=== PATIENT | female | born 1980 | race Caucasian/White ===

== ENCOUNTER → 2018-03-17 21:20 | Outpatient (CLI) | payer OTHER, SELFPAY | PROVIDERS: Visit Provider Nurse Practitioner | DX: R39.9 Unspecified symptoms and signs involving the genitourinary system (principal) | CPT/HCPCS: 87086 ==

== ENCOUNTER 2018-03-24 11:50 | Emergency (ER) | payer OTHER, SELFPAY ==
[2018-03-24 11:51] VITALS: BP 147/94; PULSE 125; RESP 16; TEMP 37.2; O2SAT 100; BMI 19.1
[2018-03-24 13:47] LABS: Bacteria 0 SEEN /hpf (None Seen); Mucous, Urine 0 SEEN /hpf (<or=2+); Red Blood Cells-Urine 0 SEEN /hpf (0-5); White Blood Cells 0 SEEN /hpf (0-5)
[2018-03-24 13:57] LABS: Color, Urine Yellow (Yellow); Glucose, Dipstick Normal (Normal); Ketone-Dipstick 50 mg/dl (Negative); Leukocyte Esterase-Dipstick Negative /ul (Negative); Nitrite-Dipstick Negative (Negative); Occult Blood-Urine Negative /ul (Negative); Protein-Dipstick Negative (Negative); Urine Bilirubin Dipstick Negative (Negative); Urine Clarity Clear (Clear); Urine Urobilinogen Normal (Normal)
[2018-03-24 13:59] LABS: Internal QC Validated? YES +Cl - CLEAR BKGD; Pregnancy, Urine Negative Negative
[2018-03-24 14:07] LABS: Squamous Epithelial Cells - UA 0-5 SEEN /hpf (5-10)
[2018-03-24] MEDS: 0.9% Normal Saline 1,000 ML 150 ML IV (14:45)
[2018-03-24] MEDS: Ketorolac 30 MG/ML Syringe IV (14:46)
[2018-03-24] MEDS: Ondansetron 4 MG/2 ML Vial IV (14:46)
[2018-03-24 14:48] LABS: Absolute Lymphocyte Count 1.68 X10^3/ul (0.83-4.51); Absolute Neutrophil Count 5.4 X10^3/uL (2.0-7.7); Basophil# 0.01 X10^3/uL; Basophil% 0.1 % (0-1); Eosinophil# 0.01 X10^3/uL; Eosinophils% 0.1 % (0-5); Hematocrit 38.7 % (37-47); Hemoglobin 12.8 g/dl (12.0-15.0); Lymphocyte # 1.68 X10^3/ul (4.0); Lymphocyte % 21.8 % (19-41); Mean Corp Hgb Conc 33.1 g/gl (32-36); Mean Corpuscular Hgb 29.6 pg (27.0-32.0); Mean Corpuscular Volume 89.4 fL (81-99); Mean Platelet Vol. 10.2 fl (6.2-12.0); Monocyte# 0.64 X10^3/uL; Monocyte% 8.3 % (0-10); Neutrophil # 5.37 X10^3/uL (2.7-7.7); Neutrophil % 69.6 % (47-70); POSITIVE COUNT NO; POSITIVE DIFFERENTIAL NO; POSITIVE MORPHOLOGY NO; Platelet Count 193 K/mm3 (150-450); RBC Distribution Width CV 12.7 % (11.6-14.6); RBC Distribution Width SD 41.3 fl (35.1-43.9); Red Blood Count 4.33 M/mm3 (4.2-5.4); White Blood Count 7.7 K/mm3 (4.4-11.0)
[2018-03-24 15:00] LABS: AST(SGOT) 15 U/L (15-37); Alanine Aminotransfer ALT/SGPT 19 U/L (13-56); Albumin, Serum 4.3 g/dL (3.2-5.0); Alkaline Phosphatase 43 U/L (45-117); Anion Gap 7 (5-15); BUN 7 mg/dL (7-18); BUN/Creat Ratio 9.3 RATIO (10-20); Bilirubin, Direct 0.21 mg/dL (0.00-0.30); Calcium,Total 8.9 mg/dL (8.5-10.1); Chloride 109 mmol/L (98-107); Creatinine, Serum 0.75 mg/dL (0.55-1.02); EST Glomerular Filtration Rate 92 mL/min (>60); Est Glom Filt Rate - Afr Amer 112 mL/min (>60); Globulin 3.2 g/dL (2.2-4.2); Glucose 97 mg/dL (74-106); Lipase 90 U/L (73-393); Potassium 3.8 mmol/L (3.5-5.1); Protein, Total 7.5 g/dL (6.4-8.2); Sodium Level 140 mmol/L (136-145)
--- NOTE | 2018-03-24 15:14 | ED.VISSUMM ---
- ER Visit Summary Date of Service: 03/24/18 Chief Complaint: Right-sided abdominal pain History of Present Illness: The patient is a 37 F with a 2 week history of right-sided abdominal pain. It is been waxing and waning throughout the last 2 weeks. She denies nausea, vomiting, or diarrhea. She has not had urinary symptoms. States the pain is typically worse with movement but she does not remember a particular injury. Physical Examination: Blood pressure is 147/94, temperature 98.0, heart rate 125, respiratory rate 16, pulse ox 100% on room air. Patient sitting upright in bed no acute distress. Head neck examination is normal. Heart is mildly tachycardic. Lung sounds are clear. Abdomen is soft with no reproducible tenderness. Back examination reveals mild tenderness to the right lumbar region laterally. No skin changes are noted. Neuro exam is unremarkable. Test Results: CBC and chemistry studies normal. LFTs and lipase normal. Urine is significant only for 50 ketones but no sign of infection or blood. test is negative. Emergency Department Course and Treatment: Patient was given Toradol and Zofran. On repeat evaluation she does feel improved. I discussed with her that I believe her symptoms are musculoskeletal in nature. At this time I see no sign of acute infection. She will be written for Toradol and Flexeril to use at bedtime to help with spasm so that she can sleep. If her symptoms worsen or any concerns arise she will return for repeat evaluation. Treatment Plan: [] Disposition: Discharge Impression: Musculoskeletal back pain This note was generated with [employer] dictation software. It may contain incorrect words, spelling, and punctuation that were not noted in review of the chart prior to signing ED Disposition - Plan for ED Patient: Chief Complaint: Abd Pain Referrals: Rosana Romero, STEVE-C [Primary Care Provider] -
--- NOTE | 2018-03-24 15:23 | ED.DEP ---
ED Disposition - Plan for ED Patient: Disposition: Home or Assisted Living Chief Complaint: Abd Pain Instructions: ED Flank Pain Uncertain Cause Prescriptions: Ketorolac [Toradol] 10 mg PO Q6H PRN #14 tablet PRN Reason: Pain Cyclobenzaprine [Flexeril] 0.5 - 1 tab PO TID PRN #20 tablet PRN Reason: Muscle Spasm Referrals: Rosana Romero NP-C [Primary Care Provider] - 1 Week
[2018-03-24 15:46] VITALS: BP 100/67; PULSE 85; RESP 18; O2SAT 99
== END 2018-03-24 15:46 | disposition home or self-care (01) ==
PROVIDERS: Emergency Provider Emergency Medicine; Family Provider Nurse Practitioner; PCP Nurse Practitioner
DX: M54.5 Low back pain (principal); R10.9 Unspecified abdominal pain
CPT/HCPCS: 80048; 80076; 81001; 81025; 83690; 85025; 96361; 96374; 96375; 99283; J7030; A4216; J2405